=== PATIENT | male | born 1995 | race Caucasian/White ===

== ENCOUNTER 2024-12-12 19:52 | Emergency (ER) | payer SELFPAY ==
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
[2024-12-12 19:59] VITALS: BP 143/90; PULSE 82; RESP 16; TEMP 36.6; O2SAT 97
[2024-12-12 20:09] LABS: EDUAAPPEAR Clear; EDUABILI Negative (Negative); EDUABLOOD Negative (Negative); EDUACOLOR1 Yellow; EDUAGLUCOSE Negative (Negative); EDUAKETONE Negative (Negative); EDUALEUKO Negative (Negative); EDUANITRATE Negative (Negative); EDUAPH 5.5; EDUAPROTEIN Negative (Negative); EDUASPGRAVITY 1.025; EDUAUROBILI 0.2
[2024-12-13 20:12] LABS: Trichomonas Vag PCR NOT DETECTED (NOT DETECTE)
== END 2024-12-12 20:13 | disposition home or self-care (01) ==
PROVIDERS: Emergency Provider Nurse Practitioner Family
DX: R30.0 Dysuria (principal); R35.0 Frequency of micturition; M54.50 Low back pain, unspecified; Z11.3 Encounter for screening for infections with a predominantly sexual mode of transmission
CPT/HCPCS: 81003; 87491; 87591; 87661; 99213; G0463

== ENCOUNTER 2024-12-15 10:54 | Emergency (ER) | payer SELFPAY ==
--- OUTSIDE RECORDS SUMMARY | 2023-11-14 10:30 | XMS_ITS ---
Author Organization [facility] Address [address] [place] [address] Dr larese [place], [place] [id number] Care Team Providers Care Side Trimmer Name Role Phone Shaun Tran Unavailable [phone] REASON FOR VISIT Right hand pain. Encounters Encounter Location Date Provider Diagnosis [facility] [address] [place] [address] [place], [place] [id number] 11/14/2023 Shaun Tran Plan Of Treatment No Information Progress Notes * Jessica YATESfrancoisDOB: 6 (29 yo M)Acc No.[id number]:11/14/2023 Progress Notes Patient: Sarath KELLEY Provider: Candida Tran MD :1995 A ge:27 Y S ex:Male Date:11/14/2023 Address:[address] , [id number] Subjective: * Chief Complaints: * 1 . Right hand pain. . * Medical History: Objective: * Vitals: Assessment: Plan: * Treatment: * Billing Information: * Visit Code: * Procedure Codes: * Electronic signature of Dann Tran MD on 12/15/2024 at 09:56 AM MDT Sign off status: Pending * Provider: Candida Tran MD Date: 11/14/2023 Generated for Hilario fuller/Wiley/eTransmitting on: 0 12/15/2024 09:56 AM MDT
--- OUTSIDE RECORDS SUMMARY | 2024-09-15 04:00 | XMS_ITS ---
Author Organization [facility] Address [address] [place] [address] Care Team Providers Care Mechanical Oxidizer Name Role Phone Migration, Provider Unavailable Unavailable REASON FOR VISIT [facility] Encounters Encounter Location Date Provider Diagnosis [facility] [address] [place] [address] 09/15/2024 Provider Migration Plan Of Treatment No Information Progress Notes * Sarath YATES HDOB: [birth year] (29 yo M)Acc No.[id number]:09/15/2024 Patient: Sarath KELLEY :1995 A ge:28 Y S ex:Male Address:[address] [place] [address] Subjective: * Chief Complaints: * E MR-Mitchell * * Date:
--- OUTSIDE RECORDS SUMMARY | 2024-09-16 04:00 | XMS_ITS ---
Author Organization [facility] Address [address] [place] [address] Care Team Providers Care Feed Crusher Operator Name Role Phone Migration, Provider Unavailable Unavailable Allergies No Known Allergies REASON FOR VISIT [facility] Medications Medication SIG (Take, Route, Frequency, Duration) Notes Start Date End Date Status Celecoxib 200 MG Capsule Take 1 Capsule by mouth twice daily Oral; Duration: 30 days 07/24/2020 Active tramadol 50 tablet Take 1-2 Capsules by mouth every 6 hours oral; Duration: 10 days *[facility]* 07/24/2020 Active Promethazine 25 tablet Take 1 Capsule by mouth every 6 hours oral *Reorder from [facility] for eRx and Interaction Alerts* 07/24/2020 Active Gabapentin 300 MG Capsule Take 1 Capsule by mouth twice daily Oral; Duration: 30 days 07/24/2020 Active NONE REPORTED *Reorder from [facility] for eRx and Interaction Alerts* Active Encounters Encounter Location Date Provider Diagnosis [facility] [address] [place] [address] 09/16/2024 Provider Migration Plan Of Treatment No Information Progress Notes * Sarath YATES HDOB: [birth year] (29 yo M)Acc No.[id number]:09/16/2024 Patient: Sarath KELLEY :1995 A ge:28 Y S ex:Male Address:[address] [place] [address] Subjective: * Chief Complaints: * E MR-Mitchell * Surgical History: Arthroscopy, knee, w/menisectomy med OR lat. includ. debride/shav. of articul. cartilage, Given Location: transverse ligament Arthroscopy, knee with medial meniscectomy Arthroscopy, knee, meniscus repair, medial OR lateral Patient denies any prior surgery 07/24/2020 LT knee arthroscopy 07/30/2020 * Medications: T akingCelecoxib 200 MG Capsule Take 1 Capsule by mouth twice daily Oral NONE REPORTED , Notes to Pharmacist: *Reorder from [facility] for eRx and Interaction Alerts*Gabapentin 300 MG Capsule Take 1 Capsule by mouth twice daily Oral Promethazine 25 tablet Take 1 Capsule by mouth every 6 hours oral , Notes to Pharmacist: *Reorder from [facility] for eRx and Interaction Alerts*tramadol 50 tablet Take 1-2 Capsules by mouth every 6 hours oral , Notes to Pharmacist: *Reorder from [facility] for eRx and Interaction Alerts*Taking Celecoxib 200 MG Capsule Take 1 Capsule by mouth twice daily Oral Taking NONE REPORTED , Notes to Pharmacist: *Reorder from [facility] for eRx and Interaction Alerts*Taking Gabapentin 300 MG Capsule Take 1 Capsule by mouth twice daily Oral Taking Promethazine 25 tablet Take 1 Capsule by mouth every 6 hours oral , Notes to Pharmacist: *[facility]*Taking tramadol 50 tablet Take 1-2 Capsules by mouth every 6 hours oral , Notes to Pharmacist: *[facility]* * Allergies: N .K.D.A. * * Date:
--- OUTSIDE RECORDS SUMMARY | 2024-09-20 14:40 | XMS_ITS ---
Author Organization [facility] Address [address] [address] Care Team Providers Care District Court Judge Name Role Phone NONE, Undecided Primary Care Provider Alejo Drake Unavailable [phone] REASON FOR VISIT WC, NTU, Right Hand Injury Social History Sex Assigned At : Social History Observation Description Sex Assigned At Male Encounters Encounter Location Date Provider Diagnosis [facility] [address] [place] [address] 09/20/2024 Alejo Santoyo Plan Of Treatment No Information Progress Notes * Sarath YATES HDOB: [birth year] (29 yo M)Acc No.[id number]:09/20/2024 Progress Note Patient: Sarath Dove Provider: Carlos SANTOYO MD :1995 A ge:28 Y S ex:Male Date:09/20/2024 Address:[place] , [id number] Pcp:Undecided NONE Subjective: * Chief Complaints: * W C, NTU, Right Hand Injury * Active Problem List ?Problem List has not been verified Billing Information: * Procedure Codes: * Electronic signature of Ricardo Santoyo MD on 12/15/2024 at 09:57 AM MDT Sign off status: Pending * Provider: Carlos SANTOYO MD Date: 0 09/20/2024 Generated for Hilario fuller/Wiley/eTransmitting on: 0 12/15/2024 09:57 AM RUBI
--- OUTSIDE RECORDS SUMMARY | 2024-12-15 10:56 | XMS_ITS | Patient Health Record ---
Author Organization [facility] Address [address] [place] [address] Care Team Providers Care Fabric Normalizer Name Role Phone Thad Brooke Unavailable [phone] [facility], Carlos Allison Unavailable Unavaila ble Allergies No Known Allergies Reason For Referral No Information Medications Medication SIG (Take, Route, Fr equency, Duration) Notes Start Date End Date Status Naproxen 500 MG 1 tablet with food o r milk as needed Orally every 12 hrs 09/12/2024 Active Vital Signs Blood pressure diastolic 76 mm Hg 09/12/2024 HR: 81 Weight-kg 140.62 kg 09/26/2024 Height 64 in 09/26/2024 Blood pressure systolic 150 mm Hg 09/12/2024 HR: 81 Weight 310 lbs 09/26/2024 BMI 53.21 kg/m2 09/26/2024 Encounters Encounter Location Date Provider Diagnosis [facility] [place] [address] [facility] [address] 09/26/2024 Thad Brooke Laceration of right hand with foreign body, initial encounter S61.421A [facility] [place] [address] [place] [address] 09/12/2024 Thad Brooke Laceration of right hand with foreign body, initial encounter S61.421A Assessments Encounter Date Diagnosis (ICD Code) Assessment Notes Treatment Notes Treatment Clinical Notes Section Notes 09/12/2024 Laceration of right hand with foreign body, initial encounter (ICD-10 - S61.421A) x-ray was reviewed, they're very small pieces to protect debris noted around the metacarpal heads, no sign of active infection. Recommend leaving it covered it with sutures in place 2 weeks, return in 2 weeks to remove the sutures. Finish the entire course of antibiotics. 09/26/2024 Laceration of right hand with foreign body, initial encounter (ICD-10 - S61.421A) RIght hand laceration healed Patient is doing great and can gradually return to activity as tolerated. Avoid soaking until wound has completely healed. Follow up PRN. Patient is clinically stable from a orthopedic standpoint and has fully healed. Symptoms have resolved. Recommend no further treatment at this time. Continue Home exercises Plan Of Treatment No Information Insurance Providers Payer Name Payer Address Payer Phone Subscriber Number Group Number Insured Name Patient Relationship to Insured Coverage Start Date Coverage End Date Admittor CLAIMS [address] [place] [address] pending Sarath Yates Self - patient is the insured Medical (General) History Surgical History Surgery Date(Month/Year) Knee Surgery
[2024-12-15 10:57] VITALS: BP 159/83; PULSE 90; RESP 17; TEMP 36.7; O2SAT 98
--- OUTSIDE RECORDS SUMMARY | 2024-12-15 10:57 | XMS_ITS | Clinical Summary ---
Author Organization [facility] Address [facility] [place] [address] Care Team Providers Care Professor Of Theater Name Role Phone None, Provider MD Primary Care Provider Unavaila ble Allergies Active Allergy Reactions Criticality Noted Date Comments Bee Venom Swelling High 12/14/2022 Medications EPINEPHrine 0.3 MG/0.3ML injection Inject 0.3 mLs (0.3 mg total) into the muscle as needed for Anaphylaxis . 1 each 12/14/2022 Active Social History Tobacco Use Types Packs/Day Years Used Date Smoking Tobacco: Former Cigarettes Smokeless Tobacco: Never Tobacco Cessation:Counseling Given: Not Answered Alcohol Use Standard Drinks/Week Comments Yes 0 (1 standard drink = 0.6 oz pur e alcohol) occationally Sex and Gender Information Value Date Recorded Sex Assigned at Not on file Legal Sex Male 8:11 AM CDT Gender Identity Not on file Sexual Orientation Not on file Last Filed Vital Signs Vital Sign Reading Time Taken Comments Blood Pressure 112/57 12/14/2022 10:30 AM CDT Pulse 67 12/14/2022 10:30 AM CDT Temperature 37.1 C (98.8 F) 12/14/2022 8:24 AM CDT Respiratory Rate 18 12/14/2022 10:0 0 AM CDT Oxygen Saturation 98% 12/14/2022 10: 30 AM CDT Inhaled Oxygen Concentration - - Weight 127.2 kg (280 lb 6.8 oz) 12/14/2022 8:24 AM CDT Height 180.3 cm (5' 11) 12/14/2022 8:24 AM CDT Body Mass Index 39.11 12/14/2022 8:24 AM CDT Plan of Treatment Health Maintenance Due Date Last Done Comments Annual Physical 11/25/1998 Hepatitis C 11/25/2013 DTaP, Tdap and Td Vaccines ( 1 - Tdap) 11/25/2014 Hepatitis B Vaccines (1 of 3 - 19+ 3-dose series) 11/25/2014 HPV Vaccines (1 - 3-dose SCD M series) 11/25/2022 COVID-19 Vaccine (1 - 2023-2 5 season) 2024 Meningococcal B Vaccine Aged Out No l onger eligible based on patient's age to complete this topic Meningococcal Vaccine Aged Out No jun carolyn eligible based on patient's age to complete this topic Pneumococcal Vaccine: Pediat rics (0 to 5 Years) and At-Risk Patients (6 to 49 Years) Aged Out No longer eligible b ased on patient's age to complete this topic RSV Immunizations Under 20 Months Aged Out No longer eligible based on patient's age to complete this topic Insurance [employer] Care Teams Professor Of Theater Relationship Specialty Start Date End Date None, Provider, PCP - General UNKNOWN PHYSICIAN SPECIALTY 12/14/22
--- OUTSIDE RECORDS SUMMARY | 2024-12-15 10:57 | XMS_ITS | Patient Health Record ---
Author Organization [facility] Address [address] [place] [address] Care Team Providers Care Preform Machine Operator Name Role Phone Migration, Provider Unavailable Unavailable Allergies No Known Allergies Reason For Referral No Information Medications Medication SIG (Take, Route, Frequency, Duration) Notes Start Date End Date Status Celecoxib 200 MG Capsule Take 1 Capsule by mouth twice daily Oral; Duration: 30 days 07/24/2020 Active tramadol 50 tablet Take 1-2 Capsules by mouth every 6 hours oral; Duration: 10 days *Reorder from [facility] for eRx and Interaction Alerts* 07/24/2020 Active Promethazine 25 tablet Take 1 Capsule by mouth every 6 hours oral *Reorder from [facility] for eRx and Interaction Alerts* 07/24/2020 Active Gabapentin 300 MG Capsule Take 1 Capsule by mouth twice daily Oral; Duration: 30 days 07/24/2020 Active NONE REPORTED *Reorder from [facility] for eRx and Interaction Alerts* Active Problems Problem Type SNOMED Code ICD Code Onset Dates Problem Status W/U Status Risk Notes Problem Bucket-handle tear of medial meniscus, current injury, left knee, initial encounter (S83.212A) 07/25/19 21 Active confirmed PLAN: Instructed patient to R.I.C.E. affected area. Problem Bucket-handle tear of medial meniscus, current injury, left knee, subsequent encounter (S83.212D) 08/08/19 21 Active confirmed Problem Sprain of medial collateral ligament of knee ([id number]) Sprain of medial collateral ligament of left knee, initial encounter (S83.412A) 07/25/19 21 Active confirmed Problem Sprain of medial collateral ligament of left knee joint (disorder) ([id number]) Sprain of medial collateral ligament of left knee, subsequent encounter (S83.412D) 08/08/19 21 Active confirmed Encounters Encounter Location Date Provider Diagnosis [facility] [address] [place] [address] 09/15/2024 Provider Migration [facility] [address] [place] [address] 09/16/2024 Provider Migration Plan Of Treatment No Information Insurance Providers Payer Name Payer Address Payer Phone Subscriber Number Group Number Insured Name Patient Relationship to Insured Coverage Start Date Coverage End Date [employer] [address] [place] [phone] [id number] Sarath Yates Self - patient is the insured 1 [employer] [address] [address] [place] [address] [phone] [id number] Sarath Yates Self - patient is the insured 1 Medical (General) History Surgical History Surgery Date(Month/Year) Arthroscopy, knee, w/menisec emilia med OR lat. includ. debride/shav. of articul. cartilage, Given Location: transverse ligament Arthroscopy, knee, meniscus repair, medi al OR lateral Arthroscopy, knee with medial meniscecto my Patient denies any prior surgery 07/25/19 LT knee arthroscopy 07/30/2020
--- OUTSIDE RECORDS SUMMARY | 2024-12-15 10:57 | XMS_ITS | Patient Health Record ---
Author Organization [facility] Address [address] [place] [address] Dr [place], [place] [phone] Care Team Providers Care Reporting Specialist Name Role Phone Shaun Tran Unavailable [phone] Reason For Referral No Information Plan Of Treatment No Information
--- OUTSIDE RECORDS SUMMARY | 2024-12-15 10:57 | XMS_ITS | Patient Health Record ---
Author Organization [facility] Address [address] [address] [place] [place] [address] Care Team Providers Care Supervisor Histology Name Role Phone NONE, Undecided Primary Care Provider UnavailAlejo Cano Unavailable [phone] Alcides Lawson Unavailable [phone] Andrew Morelos Unavailable [phone] Vin Garcia Unavailable [phone] Adi Parikh Unavailable [phone] Allergies No Known Allergies Results Component Value Reference Range Notes XR HAND RIGHT 2 VIEWS Reviewed date:09/17/2024 12:06:26 PM Interpretation:abnormal Performing Lab: Notes/Report: PROCEDURE: XR HAND RIGHT 2 VIEWS PROCEDURE DATE: 09/10/2024 13:18 MDT INDICATIONS: Right hand pain after a fall from ladder today /looking for gravel. COMPARISON: None. FINDINGS: BONES: No acute fracture or malalignment. No suspicious osseous lesion. SOFT TISSUES: High density foci project along the volar ulnar aspect of the index finger metacarpophalangeal joint and at the distal 3rd intermetatarsal web space. Diffuse hand soft tissue swelling. OTHER: None. IMPRESSION: High-density foci along the volar aspect of the index finger metacarpophalangeal joint and 3rd intermetatarsal web space. Dictated by: Alejo Carrillo MD on 09/10/2024 13:46 MDT -------- FINAL REPORT -------- Signed Date: 09/10/2024 15:50 ET Workstation ID: [id number] Transcribed By: Transcribed Date: 09/10/2024 15:46 ET XR HAND RIGHT 2 VIEWS PROCEDURE: XR HAND RIGHT 2 VIEWS XR HAND RIGHT 2 VIEWS PROCEDURE DATE: 13:18 MDT XR HAND RIGHT 2 VIEWS INDICATIONS: Right hand pain after a fall from ladder today /looking for gravel. XR HAND RIGHT 2 VIEWS COMPARISON: None. XR HAND RIGHT 2 VIEWS FINDINGS: XR HAND RIGHT 2 VIEWS BONES: No acute fr acture or malalignment. No suspicious osseous lesion. XR HAND RIGHT 2 VIEWS SOFT TISSUES: High density foci project along the volar ulnar aspect of the index finger metacarpophalangeal XR HAND RIGHT 2 VIEWS joint and at the d istal 3rd intermetatarsal web space. Diffuse hand soft tissue swelling. XR HAND RIGHT 2 VIEWS OTHER: None. XR HAND RIGHT 2 VIEWS IMPRESSION: XR HAND RIGHT 2 VIEWS High-density foci along the volar aspect of the index finger metacarpophalangeal joint and 3rd intermetatarsal XR HAND RIGHT 2 VIEWS web space. XR HAND RIGHT 2 VIEWS Dictated by: Sveta Carrillo MD on 09/10/2024 13:46 MDT XR HAND RIGHT 2 VIEWS -------- FINAL REPORT -------- XR HAND RIGHT 2 VIEWS Signed Date: 09/10 15:50 ET XR HAND RIGHT 2 VIEWS Workstation ID: [id number] XR HAND RIGHT 2 VIEWS Transcribed By: XR HAND RIGHT 2 VIEWS Transcribed Date: 09/10/2024 15:46 ET Reason For Referral Reason APT ON 09/12: STAT: R equesting appointment within 1 to 2 days. Please call if not able to schedule. Send records at completion of visit. Thank you. Diagnosis 1 Laceration of right hand, foreign body presence unspecified, initial encounter (S61.411A) Referral Organization [facility] Referring Provider First Name Alcides Referring Provider Last Name Lulu Referring Provider Speciality Urgent Car e Referred Provider [facility] Orthopedi ramesh Jones Referred Provider Specialty Orthopedic S urgery General Notes Alcides Lawson 01:47:05 PM > patient with laceration palmar aspect of right hand with debris present in hand appears to be relatively near MCP joint pointer finger Despite copious irrigation. Consulted [facility] orthopedics who recommended we lightly close the wound and sent over for stat evaluation., Monie Lara MA 09/10/2024 02:15:57 PM > Referral faxed with attachment. Called [facility] to schedule an appointment. They have received the referral but are unable to schedule him at this time. They confirmed the patient's phone number and state that they will call him to schedule and then report back to us so we are aware of the appointment. Referral given to the patient and advised that he will hear from them to schedule soon., Sandra Zhao LPN 09/13/2024 10:36:28 AM >Referral notes forwarded to provider for review, Alcides Lawson 09/13/2024 02:11:15 PM >reviewed Referral Priority Stat Referral Appointment Date 09/12/2024 Medications Medication SIG (Take, Route, Frequency, Duration) Notes Start Date End Date Status Cephalexin 500 MG Capsule 1 capsule Oral ly Four times a day; Duration: 5 day(s) 09/10/2024 Active Immunizations Vaccine Route Administration Date Status Comme nts Td Presv Free Private 19 Yrs and over IM Intramuscular 01/15/2022 Administered Social History Tobacco Use: Social History Observation Description Date Details (start date - stop date) Former Smoker NA - NA Sex Assigned At : Social History Observation Description Sex Assigned At Male Social History General Social Info Question Answer Notes Tobacco Use: Are you a: former smoker How long has it been since you last smoked? 1-5 years Additional Findings: Tobacco Non-User Current no n-smoker Additional Details Category Social Info Options Details General Smokeless Tobacco or other tobacco use no stopped vaping August 2019 Vital Signs Heart Rate 81 /min 09/10/2024 [facility] Aubrey ESTRELLA R 09/10/2024 12:12:59 PM > Temperature 98.1 degrees Fahrenheit 09/10/2024 Shell craven Monie ESTRELLA R 09/10/2024 12:12:59 PM > Respiratory Rate 18 /min 09/10/2024 Monie Lara MA R 09/10/2024 12:12:59 PM > Height-cm 180.34 cm 09/10/2024 [facility] Aubrey ESTRELLA R 09/10/2024 12:12:59 PM > Oximetry 97 % 09/10/2024 [facility] Aubrey ESTRELLA R 09/10/2024 12:12:59 PM > Blood pressure diastolic 83 mm Hg 09/10/2024 Jordan Ramirez MAa R 09/10/2024 12:12:59 PM > Weight-kg 140.61 kg 09/10/2024 [facility] DELORES, Da na R 09/10/2024 12:12:59 PM > Height 71 in 09/10/2024 [facility] DELORES, Da na R 09/10/2024 12:12:59 PM > Blood pressure systolic 133 mm Hg 09/10/2024 Jordan Veronica MAa R 09/10/2024 12:12:59 PM > Weight 310.0 lbs 09/10/2024 [facility] DELORES, Da na R 09/10/2024 12:12:59 PM > BMI 43.23 kg/m2 09/10/2024 [facility] DELORES, Da na R 09/10/2024 12:12:59 PM > Encounters Encounter Location Date Provider Diagnosis [facility] [address] [place] [address] 04/06/2024 Adi Parikh [facility] Z02.[address] [place] [address] 06/28/2024 Andrew Morelos [facility] Screen Z02.[address] [place] [address] 09/10/2024 Alcides Lawson Laceration of right hand, foreign body presence unspecified, initial encounter S61.411A [facility] [address] [place] [address], [place] [address] 09/10/2024 Vin Garcia [facility] Drug Screen Z02.4 [facility] [address] [place] [place] [address] 09/10/2024 Alcides Lawson Assessments Encounter Date Diagnosis (ICD Code) Assessment Notes Treatment Notes Treatment Clinical Notes Section Notes 04/06/2024 [facility] Drug Screen (ICD-10 - Z02.4) 06/28/2024 [facility] Drug Screen (ICD-10 - Z02.4) 09/10/2024 Laceration of right hand, foreign body presence unspecified, initial encounter (ICD-10 - S61.411A) I did speak with Jesus Pro and Dr. Brooke of [facility] orthopedics regard regarding my concerns of persistent foreign bodies in the right hand and a relatively deep laceration that does not appear to involve however tendons with good neurovascular and functional evaluation status post laceration. They recommended I closed the wound loosely and that they will follow-up with the patient within the next 1-2 days for re-evaluation. We did go ahead and call their office up that appointment as well and they said they will call the patient to follow-up with him. I did start the patient on antibiotics with Keflex 500 mg 4 times a day and asked him to monitor herself closely for any signs symptoms of infection we also discussed the importance of immediate follow-up for any signs symptoms of infection and light duty with that hand to avoid opening up. 09/10/2024 [facility] Drug Screen (ICD-10 - Z02.4) Plan Of Treatment No Information Insurance Providers Payer Name Payer Address Payer Phone Subscriber Number Group Number Insured Name Patient Relationship to Insured Coverage Start Date Coverage End Date [employer] [address] [place] [phone] [id number] DOI 3 Sarath Yates Self - patient is the insured [employer] PA[employer]ABLE [address] [address] [place] [phone] [id number] Sarath Yates Self - patient is the insured [employer] [address] [place] [address] [phone] [id number] -Rt hand lac DOI 24 Sarath Yates Self - patient is the insured [employer] [address] [place] [phone] [id number] Sarath Yates Self - patient is the insured
[2024-12-15 13:33] VITALS: BP 156/76; PULSE 86; RESP 19; TEMP 36.7; O2SAT 99
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
--- OUTSIDE RECORDS SUMMARY | 2024-12-15 14:04 | XMS_ITS | Clinical Summary ---
Author Organization [facility] Address [facility] [place] [address] Care Team Providers Care Avian Keeper Name Role Phone None, Provider MD Primary [...] Insurance [employer] Care Teams Avian Keeper Relationship Specialty Start Date End Date None, Provider, PCP - General UNKNOWN PHYSICIAN SPECIALTY 12/14/22
[2024-12-15 14:45] LABS: Trichomonas Vag PCR NOT DETECTED (NOT DETECTE)
== END 2024-12-15 14:47 | disposition home or self-care (01) ==
PROVIDERS: Emergency Medicine; Emergency Provider Emergency Medicine
DX: Z20.5 Contact with and (suspected) exposure to viral hepatitis (principal)
CPT/HCPCS: 87491; 87591; 87661; 99283